=== PATIENT | female | born 1945 | race Two or more races ===

== ENCOUNTER 2021-08-10 13:29 | Outpatient (REF) | payer MEDICARE, SELFPAY ==
--- NOTE | 2021-08-12 14:20 | MHC.AU.ANO ---
Adult Audiological Evaluation Date of Visit: 08/10/21 Reason for Appointment: Patient has been experiencing gradually increasing hearing difficulty over the last 6 years. 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 Throughout childhood, she had frequent, severe ear infections in the right ear. She received a tonsillectomy at age 19, and has not had an ear infection since. Has hearing been tested previously?: Yes Previous Hearing Test Results: In 2017 at [facility]- Results were not available for review. Patient reports she was told the right ear was worse than the left ear. Ear History: Ear Deformity: None Reported Recent Ear Drainage: None Reported Recent Ear Pain: None Reported Family History of Hearing Loss?: No Recent Ear Infections: None Reported Ear Infections in Childhood: Right Ear History of Ear Wax Buildup: None Reported Previous Ear Surgery: None Reported Bothersome Tinnitus/Ringing/Noises in Ears: Right Ear Ear used on the phone: Both Ears Blocked/Full Sensation in Ear(s): None Reported History of occupational noise exposure?: No History: No Medical History: Medical History: Carcinoid cancer, Tonsillectomy Medication List: Omeprazole, Quetiapine, Paroxetine, Simvastatin, Vitamind D3, Calcium, Vitamin C Otoscopy: Right Ear: Unremarkable Left Ear: Unremarkable Tympanometry: Tympanometry performed due to: To assess integrity of the middle ear system Right Ear: Normal Middle Ear System (Type A) Left Ear: Normal Middle Ear System (Type A) Hearing Evaluation: Transducer(s) Used: Insert Earphones Method: Conventional Audiometry Stimuli Used: Pure Tones Right Ear: Description of Hearing: Mild to severe mixed hearing loss (mostly sensorineural, slight conductive component in the high frequencies) Left Ear: Description of Hearing: Borderline-normal to moderately-severe sensorineural hearing loss Speech Recognition Threshold (SRT): Method Used: Recorded Lists Stimuli Used: Spondee Words Right Ear: 30 dBHL Left Ear: 30 dBHL Word Discrimination: Method: Recorded Lists Word Lists Used: Tested in Kyrgyz and Northern Irish at patient's request: W-22 and [place] (Northern Irish) Right Ear: Kyrgyz: 92% at 70 dBHL Northern Irish: 92% at 70 dBHL Left Ear: Kyrgyz: 96% at 70 dBHL Northern Irish: 92% at 70 dBHL Most Comfortable Level (MCL): Right Ear: 70 dBHL Left Ear: 70 dBHL Recommendations: Audiological re-evaluation in one year. See Hearing Aid Evaluation report for more information. Patient has asymmetrical hearing loss (right ear worse). The difference in the ears appears to conductive in nature. If patient has not previously been referred to Ear, Nose, and Throat to address the asymmetry, a referral may be warranted. Diagnosis: Primary Diagnosis: H90.3 Bilateral Sensorineural Hearing Loss Signature: Provider: Natasha Brown, TRU-A
--- NOTE | 2021-08-12 14:37 | MHC.AU.HAS ---
Hearing Aid Evaluation Date of Visit: 08/10/21 Historical Information: Description of Hearing: Right: Mild to severe mixed hearing loss (mostly sensorineural) Left: Borderline-normal to moderately-severe sensorineural hearing loss Summary: Patient was seen for audiological evaluation (see separate report for details). Patient has been using a store-bought personal amplifier, which has not been providing sufficient benefit. 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 She has had particular difficulty following along at work if there are multiple people speaking or if there is background noise. Hearing aid options were discussed. We will try a pair of Phonak Audeo P70-R. Patient would also benefit from a Phonak Manan On iN microphone, to help overcome negative factors such as distance, noise, and multiple people talking. Hearing Aid Prescription: Based on the individual?s shared listening needs, communication environments, dexterity, desire for connectivity, and personal preferences, the following prescription for amplification has been made: Right ear: Customer Relationship Specialist: Phonak Model: Audeo P70-R Battery Size: Rechargeable Color: Graphite Harper Coal Pulverizing Operator: 1M Left ear: Customer Relationship Specialist: Phonak Model: Audeo P70-R Battery Size: Rechargeable Color: Graphite Harper Coal Pulverizing Operator: 1M Accessories/Assistive Technology: Phonak Manan On iN Action Taken/Action Needed: Cooper quote will be sent to [facility]. Upon approval, the materials will be ordered and patient can be contacted to schedule a hearing aid fitting. Primary Diagnosis: H90.3 Bilateral Sensorineural Hearing Loss Signature: Provider: Natasha Brown, TRU-A
== END 2021-08-10 13:30 | disposition home or self-care (01) ==
LOC: HO.SH 13:29
PROVIDERS: Visit Provider Internal Medicine
DX: Z01.118 Encounter for examination of ears and hearing with other abnormal findings (principal); H90.3 Sensorineural hearing loss, bilateral
CPT/HCPCS: 92557; 92567; 92591

== ENCOUNTER 2021-10-02 12:19 | Outpatient (REF) | payer SELFPAY | END 2021-10-02 12:20 | disposition home or self-care (01) | LOC: HO.HAP 12:19 | PROVIDERS: Visit Provider Internal Medicine | DX: Z13.89 Encounter for screening for other disorder (principal) ==

== ENCOUNTER 2022-04-18 16:21 | Emergency (ER) | payer MEDICARE, SELFPAY ==
[2022-04-18 17:02] VITALS: BP 157/92; PULSE 89; RESP 18; TEMP 36.7; O2SAT 94; BMI 31.3
--- NOTE | 2022-04-18 17:03 | ED.ANIMALBIT ---
HPI - Animal Bite General Chief Complaint: General Medical Stated Complaint: tick bite above breast Time Seen by Provider: 04/18/22 17:02 Source: patient Mode of arrival: ambulatory Limitations: no limitations History of Present Illness HPI narrative: 76-year-old female presenting to the ER after she had a tick to her left breast area that she noticed a few hours prior to arrival. She reports that she did not notice it yesterday when she took a shower. She does have a dog. She noticed it today prior to arrival and she was able to remove the tick completely. She denies any other symptoms complaints or concerns at this time. 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) Related Data Previous Rx's Medication Instructions Recorded doxycycline monohydrate 100 mg 200 mg PO DAILY Tick bite 04/18/22 tablet prophylaxis #2 tabs Allergies Allergy/AdvReac Type Severity Reaction Status Date / Time No Known Allergies Allergy Verified 04/18/22 17:02 Review of Systems Review of Systems: Constitutional : No Weight loss, No Fever, No Chills, No Night Sweats, No Fatigue, No Malaise ENT/Mouth : No Hearing loss, No Ear Pain, No Nasal Congestion, No Sinus Pain, No Hoarseness, No sore throat, No Rhinorrhea, No Swallowing Difficulty Eyes: No Eye Pain, No Swelling, No Redness, No Foreign Body, No Discharge, No Vision Changes Cardiovascular : No Chest Pain, No SOB, No Dyspnea on Exertion, No Orthopnea, No Edema, No Palpitations Respiratory : No Cough, No Sputum, No Wheezing, No Smoke Exposure, No Dyspnea Gastrointestinal : No Nausea, No Vomiting, No Diarrhea, No Constipation, No abdominal Pain, No Hematochezia, No Melena Genitourinary : no irregular bleeding, No Dysuria, No Urinary Frequency, No Hematuria, No Urinary Incontinence, No Urgency, No Flank Pain, No Urinary Flow Changes, No Hesitancy Musculoskeletal : No joint pain, No Myalgias, No Joint Swelling Skin : No Skin Lesions, No rash Neuro : No Weakness, No Numbness, No Paresthesias, No Loss of Consciousness, No Dizziness, No Headache Psych : No Anxiety/Panic, No Depression, No SI/HI/AH/VH, No Social Issues, Heme/Lymph: No Bruising, No Bleeding,No Lymphadenopathy Endocrine : No Polyuria, No Polydipsia, No Temperature Intolerance + tick bite Yes all other systems are reviewed and are negative PMFSH Past Medical History Attestation statement: The following information was validated with the patient. Source: old records reviewed and nursing notes reviewed Physical Exam ED Vital Signs: Vital Signs - 24 hr 04/18/22 17:02 Temperature 98.0 F Pulse Rate 89 Respiratory Rate 18 Blood Pressure 157/92 H Pulse Oximetry 94 Oxygen Delivery Method Room Air BMI result Body Mass Index 31.3 vital signs have been reviewed as normal and appeared to be correct. Blood pressure normal. Heart rate normal. Respiration rate normal. Temperature normal. Oxygen saturation normal. Appearance: Alert. Oriented X3. No acute distress. Head: Normal external exam. Normocephalic. Atraumatic. Eyes: PERRLA. EOMI. Conjunctiva and sclera normal. Eyelids normal. ENT: Pharynx normal. Uvula midline. Moist mucous membranes. No lesions/ulcerations or masses noted on the tongue. Normal voice. No trismus noted. No drooling noted. No muffled voice noted. Neck: Normal inspection. Neck supple. FROM. No adenopathy. Thyroid Normal. No meningeal signs. CVS: Normal heart rate and rhythm. Respiratory: No respiratory distress. Painless inspiration. Back: Full range of motion noted. Skin: Skin warm and dry. Normal skin color. Normal skin turgor. It appears that the patient removed the tick to her left breast chest wall. No foreign bodies or streaking or purulent drainage noted. No additional rashes/lesions/lacerations noted. Extremities: Extremities exhibit normal range of motion and nontender. Neuro: Oriented X 3. No motor deficit. No sensory deficit. Reflexes normal. Normal steady gait. No focal neuro deficits noted. CN's II-XII intact bilaterally? Course Course Course Narrative: Will provide the patient with 200 mg of doxycycline for prophylactic tick bite patient did not have the tick longer thean 24 hours. Will DC home with instructions return if any new or worsening symptoms follow up with primary care provider. Patient understands agrees with this plan. MDM - Animal Bite Medical Records Attestation: I reviewed the patient's medical records. Discharge Plan Discharge Clinical Impression: Tick bite of breast Patient Disposition: Home, Self-Care Instructions: Tick Bite (ED) Prescriptions: New doxycycline monohydrate 100 mg tablet 200 mg PO DAILY Qty: 2 0RF Referrals: Physician,Unknown J [Primary Care Provider] - (your pcp) Interventions: ED Discharge Assessment Last Done: 04/18/22 17:07
== END 2022-04-18 17:14 | disposition home or self-care (01) ==
PROVIDERS: Emergency Provider Emergency Medicine
DX: N64.4 Mastodynia (principal)
CPT/HCPCS: 99282

== ENCOUNTER 2024-08-11 18:29 | Emergency (ER) | payer MEDICARE, SELFPAY ==
--- NOTE | ~2024-08-11 | XR_ITS ---
CLINICAL HISTORY: cp 1 view chest x-ray Comparison: None Findings: Normal size heart. Atherosclerotic vascular disease. No consolidation, significant pleural effusion or pneumothorax. Mild bilateral interstitial changes likely chronic. Minimal left costophrenic angle and right lateral basilar subsegmental atelectasis/scarring. No acute fracture. IMPRESSION: 1. No acute findings. This document has been electronically signed by: Stephanie Turner MD on 08/11/2024 19:40:47
--- NOTE | ~2024-08-11 | XR_ITS ---
CLINICAL HISTORY: shoulder pain 4 view left shoulder Comparison: None Findings: No acute fracture. No dislocation. Mild degenerative changes of greater tuberosity of proximal humerus. No significant degenerative changes of glenohumeral or acromioclavicular joints. No radiopaque foreign body. IMPRESSION: 1. No acute findings This document has been electronically signed by: Stephanie Turner MD on 08/11/2024 19:42:13
--- NOTE | 2024-08-11 18:44 | ED_ITS ---
HPI - Extremity Injury (Upper) General Chief Complaint: Extremity Injury, Upper Stated Complaint: left shoulder pain Time Seen by Provider: 08/11/24 20:15 Source: patient Mode of arrival: ambulatory Limitations: no limitations History of Present Illness ED Provider: DR. Ashraf HPI narrative: 79-year-old female came in for evaluation of left shoulder/left arm pain x1 week. Patient declined having any strenuous activity or heavy lifting with the left arm, no neck injury or pain, no fall. Left shoulder pain radiates to the left chest wall, no shortness of breath,, no double vision. Patient otherwise feels at her baseline. Related Data Previous Rx's ?Medication ?Instructions ?Recorded doxycycline monohydrate 100 mg 200 mg (2 x 100 mg) PO DAILY Tick 04/18/22 tablet bite prophylaxis #2 tabs Allergies Allergy/AdvReac Type Severity Reaction Status Date / Time No Known Allergies Allergy Verified 08/11/24 18:47 Review of Systems 2 Review of Systems: All other systems are reviewed and are negative Constitutional: Reports as per HPI and Reports no additional constitutional complaints Eyes: Reports as per HPI and Reports no additional eye complaints Reports system reviewed and no additional complaints, except as documented Cardiovascular: Reports as per HPI and Reports no additional cardiovascular complaints Respiratory: Reports as per HPI and Reports no additional respiratory complaints Gastrointestinal: Reports as per HPI and Reports no additional gastrointestinal complaints Genitourinary: Reports no additional female genitourinary complaints Musculoskeletal: Reports no additional musculoskeletal complaints Skin/Breast: Reports system reviewed and no additional complaints, except as docu Psychiatric: Reports no additional psychiatric complaints Endocrine: Reports no additional endocrine complaints Hematologic/Lymphatic: Reports no additional hematologic/lymphatic complaints Allergic/Immunologic: Reports no additional allergic/immunologic complaints Reports system reviewed and no additional complaints, except as documented and Reports Abnormal speech present FOR[facility] Social History Social History Advance Directives: No Advance Directives Information Provided: No Physical Exam 2 Vital Signs: Vital Signs: Last Vital Signs Temp 98.0 F 08/11/24 18:45 Pulse 84 08/11/24 18:45 Resp 16 08/11/24 18:45 BP 168/84 H 08/11/24 18:45 Pulse Ox 97 08/11/24 18:45 O2 Del Method Room Air 08/11/24 18:45 BMI result Body Mass Index 27.0 Vital signs have been reviewed and appear to be correct. Blood pressure elevated. Heart rate normal. Respiratory rate normal. Temperature normal. Oxygen saturation normal. Appearance: Alert. Oriented X3. No acute distress. Head: Normal external exam. Normocephalic. Atraumatic. No [place] signs noted. No raccoon eyes noted Eyes: PERRLA. EOMI. Conjunctiva and sclera normal. Eyelids normal. ENT: TM's Normal. Pharynx normal. Uvula midline. Moist mucous membranes. No trismus noted. No drooling noted. No muffled voice noted. Neck: Normal inspection. Neck supple. FROM. No adenopathy. Thyroid Normal. No meningeal signs. No neck mass noted. CVS: Normal heart rate and rhythm. Heart sound normal. No murmurs noted. Pulses normal throughout. Respiratory: No respiratory distress. Painless inspiration. Breath sounds normal. No wheezes/rales/rhonchi noted. Chest nontender. No accessory muscle usage noted or decreased air movement noted. Abdomen: Soft and nontender. Bowel sounds normal in all 4 quadrants. No distention noted. No organomegaly noted. No visible injury noted. Back: No CVA tenderness. Full range of motion noted. Skin: Skin warm and dry. Normal skin color. Normal skin turgor. No rashes/lesions/lacerations noted. Extremities: No lower extremity edema. Extremities exhibit normal range of motion. Extremities nontender. Neuro: Oriented X 3. Cranial nerve exam: II-XII are grossly intact No motor deficit. No sensory deficit. Reflexes normal. Course Course Course Narrative: This is a Rapid Medical Exam performed in triage by Katy Marinelli PA-C. Full HPI, ROS and PE to be performed by primary ED provider. 79 yo F presenting to the ED c/o LUE pain x1 week, greatest in shoulder, with radiation to chest/hand x today. denies injury/fall. Pain prevented her from sleeping. States today changed today w/ assoc numbness to L hand. denies SOB, weakness. States initially thought pain was spasming until today PE: Strength intact, NV intact, FROM intact, no deformity Plan: EKG, XR, labs Reevaluation(s) Reevaluation #1: Left shoulder/left arm pain x1 week, negative cardiac workup, repeat abdominal exam reveals no tenderness or rebound tenderness. Time: 20:27 Medical Decision Making Differential Diagnosis Differential Diagnoses: The differential diagnosis associated with the presentation includes (Left shoulder rotator cuff tendinitis, left shoulder arthritis, left cervical radiculopathy, ACS, electrolyte derangement, severe anemia.) Admission/Observation Consideration of admission/observation: Escalation of care including admission/observation considered Lab Data MDM Lab Attestation statement: I reviewed the patient's lab results. 08/11/24 19:11 08/11/24 19:11 Labs: Lab Results 08/11/24 Range/Units 19:11 WBC 7.7 (4.8-10.8) X10*3/uL RBC 4.45 (4.20-5.50) X10*6/uL Hgb 12.6 (12.0-16.0) g/dl Hct 38.2 (37.0-47.0) % MCV 85.8 (80.0-98.0) fL MCH 28.3 (27.0-33.0) pg MCHC 33.0 (31.0-35.0) g/dl RDW 14.0 (11.0-16.0) % Plt Count 225 (160-400) X10*3/uL MPV 10.0 (9.4-12.3) fL Immature Gran % (Auto) 0.3 (0.0-0.4) % Neut % (Auto) 57.0 (45-73) % Lymph % (Auto) 30.9 (20-40) % Ross % (Auto) 9.1 (2-11) % Eos % (Auto) 2.0 (0-4) % Baso % (Auto) 0.7 (0-2) % Lymph # (Auto) 2.4 (1.2-4.9) X10*3/uL Ross # (Auto) 0.7 (0.1-1.2) X10*3/uL Eos # (Auto) 0.2 (0.0-0.4) X10*3/uL Baso # (Auto) 0.1 (0.0-0.2) X10*3/uL Abs Immat Gran (auto) 0.02 (0.00-0.03) X10*3/uL Absolute Neuts (auto) 4.4 (2.0-8.3) x10*3/uL Absolute Nucleated RBC 0.000 (0.0-0.012) X10*3/uL Nucleated RBC % (auto) 0.0 (0.0-0.2) /100WBC Sodium 140 (135-145) mmol/L Potassium 4.3 (3.3-5.1) mmol/L Chloride 105 (96-108) mmol/L Carbon Dioxide 25 (22-29) mmol/L Anion Gap 14 (12-20) BUN 12 (9-16) mg/dL Creatinine 0.72 (0.5-1.4) mg/dL Estim Creat Clear Calc 54.9 Estimated GFR > 60 Random Glucose 116 H (60-115) mg/dL Calcium 9.7 (8.4-10.2) mg/dL Magnesium 2.3 (1.6-2.6) mg/dL Total Bilirubin 0.3 (0.0-1.0) mg/dL Direct Bilirubin 0.1 (0.0-0.5) mg/dL AST 23 (5-31) U/L ALT 24 (0-31) U/L Alkaline Phosphatase 86 (39-117) U/L Troponin I High Sens 6.5 (<3.5-17.0) ng/L Total Protein 7.3 (6.5-8.0) g/dL Albumin 4.2 (3.5-5.0) g/dL Independent Interpretation I performed an independent interpretation of an: EKG (Sinus rhythm at 77 beats per minutes, left axis deviation, normal intervals, no ST-T changes.) and Plain X-Ray (Chest/shoulder x-ray: No acute findings.) Radiology Impression Discussion of test interpretation with radiology: I have reviewed the radiologist's reading. Discharge Plan Discharge Clinical Impression: Acute myofascial pain Patient Disposition: Home, Self-Care Instructions: Musculoskeletal Pain (ED) Prescriptions: No Action doxycycline monohydrate 100 mg tablet 200 mg PO DAILY Qty: 2 0RF Referrals: Radha Ortega MD [Primary Care Provider] - Print Language: Maltese
[2024-08-11 18:45] VITALS: BP 168/84; PULSE 84; RESP 16; TEMP 36.7; O2SAT 97; BMI 27.0
--- NOTE | 2024-08-11 18:45 | ECG_ITS ---
Test Reason : CHEST PAIN Blood Pressure : */* mmHG Vent. Rate : 77 BPM Atrial Rate : 77 BPM P-R Int : 176 ms QRS Dur : 74 ms QT Int : 374 ms P-R-T Axes : 58 -13 67 degrees QTcB Int : 423 ms Normal sinus rhythm Normal ECG No previous ECGs available Referred By: Katy Marinelli Electronically Signed By: Dick Montalvo
[2024-08-11 19:15] LABS: MANUAL DIFF FLAG NO
--- OUTSIDE RECORDS SUMMARY | 2024-08-11 19:27 | XMS_ITS | Encounter Summary ---
Author Organization [facility] Address [address] [place] [address] Care Team Providers Care Mock Up Maker Name Role Phone Mireille Marquez MD Primary Care Provider [phone] Mireille Marquez MD Primary Care Provider Rosanna Diego Primary Care Provider [phone] Encounter Details Date Type Department Care Team (Late st Contact Info) Description 04/26/2008 Orders Only [facility] Hematology Oncology [address] [place] [address] [address] [place] [id number] Franky Florence MD [address] [address] Social History Tobacco Use Types Packs/Day Years Used Date Smoking Tobacco: Former Cigarettes 1 10 0 06/13/1973 - 06/13/1983 Alcohol Use Standard Drinks/Week Comments Yes 0 (1 standard drink = 0.6 oz pur e alcohol) occ Comments No Sex and Gender Information Value Date Recorded Sex Assigned at Not on file Legal Sex Female 11:50 PM EDT Gender Identity Not on file Sexual Orientation Not on file documented as of this encounter Plan of Treatment Not on file documented as of this encounter Procedures * Due to [place] state law, this organization might not be sharing negative HIV tests. 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 * (ABNORMAL) CHOLESTEROL, TOTAL (04/26/2008) CHOLESTEROL, TOTAL 236(H) 125 - 200 MG/DL 04/26/2008 04/26/2008 9:5 4 PM EST Franky Florence MD LABORATORY Final Result * CK, CREATINE KINASE (CPK, TOTAL) (04/26/2008) CK (CREATINE KINASE) 100 29 - 143 U/L 04/26/2008 04/26/2008 9:5 4 PM EST Franky Florence MD LAB SAME DAY RESULT Final Re sult * CA-125 (DPC) (04/26/2008) CA 125 5 0 - 20 U/ML Comment: THIS TEST WAS PERFORMED USING THE SIEMENS (DPC) CHEMILUMINESCENT METHOD. VALUES OBTAINED FROM DIFFERENT ASSAY METHODS CANNOT BE USED INTERCHANGEABLY. CA 125 LEVELS, REGARDLESS OF VALUE, SHOULD NOT BE INTERPRETED ABSOLUTE EVIDENCE OF THE PRESENCE OR ABSENCE OF DISEASE. 04/26/2008 04/26/2008 9:5 4 PM EST Franky Florence MD LABORATORY Final Result * HEPATIC FUNCTION PANEL (04/26/2008) Pathologist [facility] Total Protein 6.8 6.2 - 8.3 G/DL ALBUMIN 4.5 3.2 - 4.6 G/DL GLOBULIN 2.3 2.2 - 3.9 G/DL ALBUMIN/GLOBULIN RATIO 2.0 1.0 - 2.1 BILIRUBIN TOTAL 0.4 0.2 - 1.2 MG/DL BILIRUBIN DIRECT 0.1 0 - 0.2 MG/DL ALKALINE PHOSPHATASE 83 33 - 130 U/L AST (SGOT) 27 10 - 35 U/L ALT (SGPT) 39 6 - 40 U/L 04/26/2008 04/26/2008 9:5 4 PM EST Franky Florence MD LABORATORY Final Result * CBC 5 PART DIFF (04/26/2008) Pathologist [facility] WHITE BLOOD COUNT 7.6 3.8 - 10.8 THOUS/UL RBC 4.44 3.80 - 5.10 MIL/UL Hemoglobin 12.9 11.7 - 15.5 G/DL HCT (HEMATOCRIT) 38.3 35.0 - 45.0 % MCV 86.3 80.0 - 100.0 FL MCH 29.1 27.0 - 33.0 PG MCHC 33.7 32.0 - 36.0 G/DL BAND % 0 0 - 5 % NEUTROPHIL % 58 48 - 75 % LYMPHOCYTE % 31 17 - 40 % MONOCYTE % 9 0 - 14 % EOSINOPHIL % 2 0 - 5 % BASOPHIL % 0 0 - 3 % ATYPICAL LYMPHOCYTE % 0 0 - 5 % PLATELETS 270 140 - 400 THOUS/UL BANDS # 0 0 - 750 CELLS/MCL NEUTROPHILS # 4408 1500 - 7800 CELLS/MCL LYMPHOCYTES # 2356 850 - 3900 CELLS/MCL MONOCYTES # 684 200 - 950 CELLS/MCL EOSINOPHILS # 152 15 - 550 CELLS/MCL BASOPHILS # 0 0 - 200 CELLS/MCL ATYPICAL LYMPHOCYTES # 0 0 - 200 CELLS/MCL RDW 13.8 11.0 - 15.0 % MPV 9.3 7.5 - 11.5 FL 04/26/2008 04/26/2008 9:5 4 PM EST us Franky Florence MD LAB SAME DAY RESULT Final Re sult * (ABNORMAL) BASIC METABOLIC PANEL (04/26/2008) CALCIUM 9.7 8.6 - 10.2 MG/DL BUN 23 7 - 25 MG/DL CREATININE 0.74 0.50 - 1.20 MG/DL Glucose 107(H) 65 - 99 MG/DL SODIUM 140 135 - 146 MMOL/L POTASSIUM 4.9 3.5 - 5.3 MMOL/L CHLORIDE 101 98 - 110 MMOL/L CARBON DIOXIDE 28 21 - 33 MMOL/L 04/26/2008 04/26/2008 9:5 4 PM EST us Franky Florence MD LAB SAME DAY RESULT Final Re sult documented in this encounter Visit Diagnoses Diagnosis 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
--- OUTSIDE RECORDS SUMMARY | 2024-08-11 19:27 | XMS_ITS | Clinical Summary ---
Author Organization [facility] Address [address] [place] [address] Care Team Providers Care Statistical Analyst Name Role Phone Rosanna Diego Mindy Primary Care Provider [phone] Allergies No known active allergies Medications Alendronate Sodium 70 MG OR TABS 1 TABLET WEEKLY ON AN EMPTY STOMACH Active PAROXETINE HCL 30 MG OR TABS 1 TABLET EVERY MORNING Active SEROQUEL 50 MG OR TABS 4 TABLETS TWICE DAILY Active Atovaquone-Prog uanil HCl (MALARONE) 250-100 MG OR TABS take 1 tablet dose starting 1-2 days prior to malaria risk area and continue daily for 7 days after leaving risk area 50 Tab 0 05/05/2010 Active Ciprofloxacin HCl (CIPRO) 500 MG OR TABS take one tablet by mouth twice daily x 3 days as needed for severe diarrhea 6 Tab 0 05/05/2010 Active Active Problems Problem Noted Date Diagnosed Date 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 Had raul/bso in 2001. States f/u has shown no recurrence. Will refer to oncology. High cholesterol 04/11/2008 Overview (04/11/2008): On lovastatin Depressive disorder 04/11/2008 Overview (04/11/2008): Stable per pt. Anxiety 04/11/2008 Overview (04/11/2008): Stable on meds Osteoporosis 04/11/2008 Overview (05/09/2015): On fosamax. Last bmd 01/17-showed osteopenia per pt. Pt admits to noncompliance with meds. Plan on repeat bmd next year. , HTN 04/11/2008 Overview (10/18/2014): Screening mammogram 04/11/2008 Overview (04/11/2008): Book mammo as last one over one year. Screen for colon cancer 04/11/2008 Overview (04/11/2008): 2002-normal Immunizations Name Administration Dates Next Due Hep A-Hep B (Twinrix) 06/04/2010,05/05/2010 IPV 05/05/2010 Influenza,seasonal,trivalent ,preservative (FLUZONE MDV) 05/05/2010 MMR 05/05/2010 Meningococcal MPSV4 (Menomune) 05/05/2010 Td (adult), adsorbed 05/05/2010 Typhoid, parenteral 05/05/2010 Family History Medical History Relation Name Comments Hypertension Brother 2 Heart Disorder Father Hypertension Father Relation Name Status Comments Brother 1 Alive Brother 2 Father (Age 84) mi Mother (Age 93) burn compl ication Social History Tobacco Use Types Packs/Day Years [...] on file Sexual Orientation Not on file Last Filed Vital Signs Vital Sign Reading Time Taken Comments Blood Pressure 130/72 12/12/2009 4:03 PM EDT Pulse 80 12/12/2009 4:03 PM EDT Temperature 36.8 ??C (98.2 ??F) 06/04/2010 1:31 PM ES T Respiratory Rate - - Oxygen Saturation - - Inhaled Oxygen Concentration - - Weight 65.8 kg (145 lb) 12/12/2009 4:03 PM EDT Height 149.9 cm (4' 11 ) 04/26/2008 2:29 PM EST Body Mass Index 29.29 04/26/2008 2:29 PM EST Plan of Treatment Health Maintenance Due Date Last Done Comments Pneumococcal 50+ years (1 of 1 - PCV) 1993 Zoster (Shingrix) (1 of 2) 1993 Bone Density 2008 DTaP/Tdap/Td (1 - Tdap) 05/06/2010 05/05/2010 Hep B (3 of 3 - Hep B Twinri x 3-dose series) 11/02/2010 06/04/2010, 05/05/2010 RSV (1 - 1-dose 75+ series) 2018 COVID-19 Vaccine ( - 2023-2 5 season) 2024 Influenza (#1) 2024 05/05/2010 Mammogram/Breast Imaging Discontinued 05/05/2010 Meningococcal ACWY Aged Out 05/05/2010 No longer eligible based on patient's age to complete this topic Hep A Aged Out 06/04/2010, 05/05/2010 No longer eligible based on patient's age to complete this topic HPV Vaccine Aged Out No longer eligi ble based on patient's age to complete this topic Hib Aged Out No longer eligi ble based on patient's age to complete this topic Pap Smear Discontinued Zoster (Zostavax) Discontinued Procedures * Due to [place] law, this organization might not be sharing negative HIV tests. Procedure Name Priority Date/Time Associated Diagnosis Comments MAMMOGRAM SCREENING , BILATERAL FC Routine 05/05/2010 1:43 PM EST Other screening mammogram from Last 3 Months or Most Recently Relevant to Health Maintenance Results * Due to [place] law, this organization might not be sharing negative HIV tests. * MAMMOGRAM SCREENING , BILATERAL FC (05/05/2010 1:43 PM EST) Anatomical Region Laterality Modality BREAST Bilateral Mammography 05/14/2010 1:17 PM EST Addenda This result is currently undergoing an addendum. Addendum by Delon Adame MD on 05/22/2010 10:01 AM EST Prior study from [place], [place] dated February 02, 2007 has become available for comparison. There no new dominant masses or suspicious microcalcifications seen. Narrative 05/14/2010 1:17 PM EST Bilateral Mammogram. No prior studies available for comparison. This mammogram was interpreted with the assistance of a computer aided detection (CAD) system.. No dominant masses or suspicious microcalcifications are seen. Conclusion no mammographic evidence malignancy. A letter (A) in lay language describing the results will follow this report. The FDA, in accordance with the Mammography Quality Standards Act, requires that this letter be sent to the patient by the interpreting radiologist. BI-RADS Category 1: Negative *#A N#* Procedure Note Delon Adame MD - 05/14/2010 Bilateral Mammogram. No prior studies available for comparison. This mammogram was interpreted with the assistance of a computer aided detection (CAD) system.. No dominant masses or suspicious microcalcifications are seen. Conclusion no mammographic evidence malignancy. A letter (A) in lay language describing the results will follow this report. The FDA, in accordance with the Mammography Quality Standards Act, requires that this letter be sent to the patient by the interpreting radiologist. BI-RADS Category 1: Negative *#A N#* Mireille Marquez MD IMG MAMMO ORDERABLES Edited from Last 3 Months or Most Recently Relevant to Health Maintenance Care Teams Statistical Analyst Relationship Specialty Start Date End Date Rosanna Diego [address] [place] [address] PCP - General Internal Medicine 11/25/10
--- OUTSIDE RECORDS SUMMARY | 2024-08-11 19:27 | XMS_ITS | Encounter Summary ---
Author Organization [facility] Address [address] [place] [address] Care Team Providers Care Power Checker Name Role Phone Mireille Marquez MD Primary Care Provider [phone] Mireille Marquez MD Primary Care Provider [phone] Rosanna Diego Primary Care Provider [phone] Encounter Details Date Type Department Care Team (Late st Contact Info) Description 04/29/2008 Orders Only [facility] Hematology Oncology [address] [place] [address] [address] [place] [id number] Franky Florence MD [address] [address] Social History Tobacco Use Types Packs/Day Years [...] of this encounter Procedures * Due to [place] state law, this organization might not be sharing negative HIV tests. Procedure Name Priority Date/Time Associated Diagnosis Comments 5-HIAA (SEROTONIN) 24HR URINE Routine 04/29/2008 Carcinoid Tumor of Ovary High Cholesterol URINE TOTAL VOLUME Routine 04/29/2008 documented in this encounter Results * Due to [place] state law, this organization might not be sharing negative HIV tests. * URINE TOTAL VOLUME (04/29/2008) VOLUME (24HR URINE) 1700 ML 04/29/2008 04/29/2008 9:4 1 PM EST Franky Florence MD LABORATORY Final Result * (ABNORMAL) 5-HIAA (SEROTONIN) 24HR URINE (04/29/2008) 5-HIAA (24Hr Urine) 1.9 <=6.0 MG/24 H Comment: THIS SPECIMEN WAS SUBMITTED WITH A PH GREATER THAN 5.0. ??OPTIMUM PH FOR THIS ASSAY IS 1.0-5.0. IMPROPER PRESERVATION MAY COMPROMISE THE VALIDITY OF THE ASSAY. 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
--- OUTSIDE RECORDS SUMMARY | 2024-08-11 19:27 | XMS_ITS | Patient Health Record ---
Author Organization [facility] Address [address] [place] [address] Care Team Providers Care Kier Tender Name Role Phone Radha Ortega Primary Care Provider Alisson Banks Unavailable [phone] Allergies Allergen (clinical drug ingredient) Drug/Non Drug Allergy documented on EMR Reaction Allergy Type Onset Date Status Adhesive Unknown Allergy Active Mold Unknown Allergy Active Pollen Pollen Unknown Allergy Active Reason For Referral No Information Medications Medication SIG (Take, Route, Frequency, Duration) Notes Start Date End Date Status Simvastatin 10 MG Oral for 90 Active PARoxetine HCl 20 MG Oral for 90 Active QUEtiapine Fumarate 100 MG Oral for 90 Active Calcium Active Vitamin D3 Active Omeprazole 20 MG Oral for 90 A ctive Social History Tobacco Use: Social History Observation Description Date Details (start date - stop date) Former Smoker NA - NA Tobacco Use/Smoking Question Answer Notes Are you a: former smoker Additional Findings: Tobacco Non-User Current no n-smoker Alcohol Screen Question Answer Notes Did you have a drink containing alcohol in the p ast year? Yes Points 0 Interpretation Negative Problems Problem Type SNOMED Code ICD Code Onset Dates Problem Status W/U Status Risk Notes Problem 122816196017807 Hallux valgus (acquired), left foot (M20.12) Active confirmed Problem [id number] Hallux valgus (acquired), right foot (M20.11) Active confirmed Plan Of Treatment Pending Test Test Name Order Date X ray : Foot, left 3V 09/01/2021 X ray : Foot, right 3V 09/01/2021 Insurance Providers Payer Name Payer Address Payer Phone Subscriber Number Group Number Insured Name Patient Relationship to Insured Coverage Start Date Coverage End Date Medicare National [employer] [address] [place] [address] [id number] [id number] Lauren Aria Self - patient is the insured [employer] [address] [place] [address] [id number] LaurenAria sarkar Self - patient is the insured Medical (General) History Medical History History ICD Code Anxiety asthma Broken bones Cancer Cataracts Depression Diverticulosis Osteoporosis Reflux ( GERD) Measles Mumps Chicken pox Surgical History Surgery Date(Month/Year) carcinoid ovarian tumor 09/2001 hysterectomy 1982 tonsillectomy 1963
[2024-08-11 19:36] LABS: Basophils Absolute Auto 0.1 X10*3/uL (0.0-0.2); Basophils Percent Auto 0.7 % (0-2); Eosinophils Absolute Auto 0.2 X10*3/uL (0.0-0.4); Hematocrit 38.2 % (37.0-47.0); Hemoglobin 12.6 g/dl (12.0-16.0); Imm Gran Abs Auto 0.02 X10*3/uL (0.00-0.03); Imm Gran Pct Auto 0.3 % (0.0-0.4); Lymphocytes Absolute Auto 2.4 X10*3/uL (1.2-4.9); Lymphocytes Percent Auto 30.9 % (20-40); Mean Corpuscular Hemoglobin 28.3 pg (27.0-33.0); Mean Corpuscular Volume 85.8 fL (80.0-98.0); Monocytes Absolute Auto 0.7 X10*3/uL (0.1-1.2); Monocytes Percent Auto 9.1 % (2-11); Neutrophils Absolute Auto 4.4 x10*3/uL (2.0-8.3); Platelet Count 225 X10*3/uL (160-400); Red Blood Count 4.45 X10*6/uL (4.20-5.50); White Blood Count 7.7 X10*3/uL (4.8-10.8)
[2024-08-11 19:42] LABS: Alanine Aminotransferase 24 U/L (0-31); Albumin Level 4.2 g/dL (3.5-5.0); Alkaline Phosphatase 86 U/L (39-117); Anion Gap 14 (12-20); Aspartate Amino Transferase 23 U/L (5-31); Bilirubin Direct 0.1 mg/dL (0.0-0.5); Bilirubin Total 0.3 mg/dL (0.0-1.0); Blood Urea Nitrogen 12 mg/dL (9-16); Calcium 9.7 mg/dL (8.4-10.2); Carbon Dioxide 25 mmol/L (22-29); Chloride 105 mmol/L (96-108); Creatinine Clr Calc Pharmacy 54.9; Estimated Glomerular Filt Rate > 60; Glucose Random 116 mg/dL (60-115); Magnesium 2.3 mg/dL (1.6-2.6); Potassium 4.3 mmol/L (3.3-5.1); Sodium 140 mmol/L (135-145); Total Protein 7.3 g/dL (6.5-8.0)
[2024-08-11 19:48] LABS: Troponin-I High Sensitivity 6.5 ng/L (<3.5-17.0)
[2024-08-11 21:03] VITALS: BP 168/84; PULSE 84; RESP 16; TEMP 36.7; O2SAT 97
== END 2024-08-11 21:04 | disposition home or self-care (01) ==
PROVIDERS: Physician Assistant; Emergency Provider Emergency Medicine; PCP Internal Medicine
DX: M79.18 Myalgia, other site (principal); M25.512 Pain in left shoulder; R07.9 Chest pain, unspecified
CPT/HCPCS: 36415; 71045; 73030; 80048; 80076; 83735; 84484; 85025; 93005; 99283

== ENCOUNTER → 2024-08-11 18:45 | Outpatient (BNV) | payer MEDICARE, SELFPAY | PROVIDERS: PCP Internal Medicine; Visit Provider Specialist | DX: M25.512 Pain in left shoulder (principal); R07.9 Chest pain, unspecified | CPT/HCPCS: 71045; 73030 ==

== ENCOUNTER → 2024-08-11 18:45 | Outpatient (BNV) | payer MEDICARE, SELFPAY | PROVIDERS: Emergency Provider Emergency Medicine; PCP Internal Medicine; Visit Provider Internal Medicine Cardiovascular Disease | DX: R07.9 Chest pain, unspecified (principal) | CPT/HCPCS: 93010 ==